=== PATIENT | male | born 1965 | race Caucasian/White ===

== ENCOUNTER 2020-03-06 01:04 | Emergency (ER) | payer OTHER ==
[~2020-03-06] VITALS: Ht 167.6 cm; Wt 82.7 kg
--- NOTE | 2020-03-06 01:11 | PHYS DOC ---
Past History Past Medical History: Kidney Stones General Adult HPI: HPI: ".. It feels like I am having another kidney stone.. here on Lt.... it hollie started yesterday... I ve had them on both sides.. Lithotripsy On right side.... And I had a surgical removal of a cyst on my left kidney.... At the [facility] in [place]...I really hurting..." " Patient is a 54 year old male who presents with above hx and complaints of Lt flank pain starting yesterday. Patient has had previous kidney stones. Patient has had need of lithotripsy in the past for kidney stones and stent placements. Patient had a previous resection of the left kidney due to a cystic structure. Patient denies any trauma. Patient denies any travel recently outside of the [place] area. No history immunosuppression. [facility] normally follows at [facility] for his medical care. Review of Systems: Review of Systems: Constitutional: Denies fever or chills Eyes: Denies change in visual acuity HENT: Denies nasal congestion or sore throat Respiratory: Denies cough or shortness of breath Cardiovascular: Denies chest pain or edema GI: Complaints of Lt. flank abdominal pain, nausea. Denies, vomiting, bloody stools or diarrhea : Denies dysuria Musculoskeletal: Complaints of Lt flank back pain Integument: Denies rash Neurologic: Denies headache, focal weakness or sensory changes Endocrine: Denies polyuria or polydipsia Lymphatic: Denies swollen glands Psychiatric: Denies depression or anxiety Heart Score: Risk Factors: Risk Factors: DM, Current or recent (<one month) smoker, HTN, HLP, family history of CAD, obesity. Risk Scores: Score 0 - 3: 2.5% MACE over next 6 weeks - Discharge Home Score 4 - 6: 20.3% MACE over next 6 weeks - Admit for Clinical Observation Score 7 - 10: 72.7% MACE over next 6 weeks - Early Invasive Strategies Family History: Family History: Father had kidney stones Current Medications: Current Meds: See nursing for home meds Allergies: Allergies: No known drug allergies Physical Exam: PE: Constitutional: in acute distress, non-toxic appearance. [] HENT: Normocephalic, atraumatic, bilateral external ears normal, oropharynx moist, no oral exudates, nose normal. [] Eyes: PERRLA, EOMI, conjunctiva normal, no discharge. [] Neck: Normal range of motion, no tenderness, supple, no stridor. [] Cardiovascular:Heart rate regular rhythm, no murmur [] Lungs & Thorax: Bilateral breath sounds equal at apex auscultation [] Abdomen: Bowel sounds decreased, soft, left mid abdomen and flank tenderness, no masses, no pulsatile masses.] [Old surgery scar. No rebound pain. Skin: Warm, dry, no erythema, no rash. [] Back: No tenderness, left CVA tenderness. [] Extremities: No tenderness, no cyanosis, no clubbing, ROM intact, no edema. No psoas sign Neurologic: Alert and oriented X 3, normal motor function, normal sensory function, no focal deficits noted. [] Psychologic: Affect anxious l, judgement normal, mood normal. [] EKG: EKG: [] Radiology/Procedures: Radiology/Procedures: [address] [address] IMAGING REPORT Signed PATIENT: XI CARR EACCOUNT: [id number] : 1965 LOCATION: ER AGE: 54 SEX: M EXAM STATUS: REG ER ORD. PHYSICIAN: BASHIR HERRERA MD REASON: pain PROCEDURE: ACUTE ABDOMEN SERIES EXAM: Frontal view of the chest, AP views of the abdomen in upright and supine positions. CLINICAL INDICATION: Abdominal pain COMPARISON: CT 03/06/2020 FINDINGS and IMPRESSION: The heart is not enlarged. Mediastinal and hilar contours are normal. No focal parenchymal airspace opacity. No pleural effusion or pneumothorax. No abnormal small or large bowel dilatation. Moderate colonic stool content. No abnormal soft tissue mass effect. Calcifications projecting of the left renal fossa likely renal calculi. Additionally calcification at the left aspect of the L4 transverse process within the left ureter. No free intraperitoneal gas. Electronically signed by: Igor Cordero MD (03/06/2020 2:51 AM) [facility] DI[facility]ATED AND SIGNED BY: IGOR CORDERO MD DATE: 03/06/20 0251 CC: BASHIR HERRERA MD; PCP,UNKNOWN ~ [][address] [id number] IMAGING REPORT Signed PATIENT: XI CARR EACCOUNT: [id number] : 1965 LOCATION: ER AGE: 54 SEX: M EXAM STATUS: REG ER ORD. PHYSICIAN: BASHIR HERRERA MD REASON: hx kidney stone, cyst on Lt /post ori. Lt. side pain PROCEDURE: CT ABDOMEN PELVIS WO CONTRAST EXAM: CT Abdomen and Pelvis without IV contrast CLINICAL HISTORY: History of kidney stone, left-sided flank pain. COMPARISON: none TECHNIQUE: Helical CT of the abdomen and pelvis was performed without the administration of IV contrast. Axial, coronal and sagittal reformatted images were generated. ---PQRS compliance statement - One or more of the following individualized dose reduction techniques were utilized for this study: 1. Automated exposure control 2. Adjustment of the mA and/or kV according to patient size 3. Use of iterative reconstruction technique--- FINDINGS: Lack of intravenous contrast limits evaluation of solid organs, vasculature, and lymph nodes. Lower chest: Lung bases are clear. Abdomen and pelvis: Liver and biliary system: No focal liver lesion. Gallbladder is normal. No biliary ductal dilatation. Spleen: Unremarkable Pancreas: Unremarkable Adrenal glands: Unremarkable Kidneys: A 4 mm calculus is seen within the proximal left ureter. Moderate left hydronephrosis. Additional nonobstructing left lower pole renal calculi are seen. Punctate nonobstructing right interpolar renal calculus. No right hydronephrosis. Left interpolar renal cystic lesion is seen measuring 8 Hounsfield units. Right lower pole hypodense lesion is too small to accurately characterize measuring 9 mm. Lymph nodes/retroperitoneum: No abdominal or pelvic lymphadenopathy. Vessels: Aorta is normal in caliber with intermittent vascular calcifications. Bowel/Peritoneal cavity: Moderate colonic stool content is seen. No bowel obstruction. No bowel obstruction. Appendix is normal. No abdominal or pelvic ascites. Abdominal wall: Small fat-containing periumbilical hernia is seen. Bladder: Mild bladder wall thickening may be seen with cystitis. Bones: Degenerative changes of the spine are seen. No aggressive osseous lesion is noted. IMPRESSION: 1. 4 mm calculus within the proximal left ureter results in moderate left hydronephrosis. Additional nonobstructing bilateral renal calculi. 2. Bladder wall thickening, nonspecific but may be seen with cystitis. Electronically signed by: Igor Cordero MD (03/06/2020 2:48 AM) [facility] DI[facility]ATED AND SIGNED BY: IGOR CORDERO MD DATE: 03/06/20 0248 CC: BASHIR HERRERA MD; PCP,UNKNOWN ~ Course & Med Decision Making: Course & Med Decision Making Pertinent Labs and Imaging studies reviewed. (See chart for details) Patient is safe stone if passed. Patient push fluids. Patient takes Zofran 8 mg with 4 times a day for active nausea and vomiting. May take Tylenol and ibuprofen for pain. For marked pain may take Vicoprofen up to 4 times a day. Follow-up primary care. Follow-up with urology. Return if any concerns. Patient reviewed labs with primary care. Follow-up urine cultures. Return if any concerns. Self isolate. Practice social distancing. During this pandemic. Impression: 1. Renal colic 2. Lt. Renal stone with mild hydronephrosis. 3. Leukocytosis 15 with 87 segs 4. Elevated glucose-161 [] Dragon Disclaimer: Dragon Disclaimer: This electronic medical record was generated, in whole or in part, using a voice recognition dictation system. Departure Departure: Disposition: 01 HOME/RESIDENCE PRIOR TO ADM Condition: STABLE Referrals: PCP,UNKNOWN (PCP) Scripts Tamsulosin Hcl (FLOMAX) 0.4 Mg Cap.er.24h 0.4 MG PO HS for kidney stone, #30 CAP.SR Prov: BASHIR HERRERA MD 03/06/20 Ondansetron Hcl (ZOFRAN) 8 Mg Tablet 8 MG PO QIDPRN PRN for NAUSEA/VOMITING, #30 BOTTLE Prov: BASHIR HERRERA MD 03/06/20 Hydrocodone/Ibuprofen (HYDROCODONE-IBUPROFEN 7.5-200 ) 1 Each Tablet 1 TAB PO PRN Q6HRS PRN for PAIN, #30 TAB 0 Refills Prov: BASHIR HERRERA MD 03/06/20 Dragon Disclaimer This chart was dictated in whole or in part using Voice Recognition software in a busy, high-work load, and often noisy Emergency Department environment. It may contain unintended and wholly unrecognized errors or omissions. BASHIR HERRERA MD Mar 06, 2020 01:11
[2020-03-06] MEDS ORDERED: IV RINGERS SOLUTION,LACTATED 1,000 ML IV SCH (01:47)
[2020-03-06] MEDS ORDERED: KETOROLAC 30 MG/ML VIAL. IVP ONE (02:00)
[2020-03-06] MEDS ORDERED: TAMSULOSIN 0.4 MG CAP.ER.24H. PO ONE (02:00)
[2020-03-06] MEDS ORDERED: ONDANSETRON PF 4 MG/2 ML VIAL. IVP ONE ×2 (02:00→04:00)
[2020-03-06 02:08] LABS: BASO # 0.1 x10^3/uL (0.0-0.2); BASO % 1 % (0-3); EOS % 0 % (0-3); HEMATOCRIT 46.3 % (39.0-53.0); HEMOGLOBIN 15.5 g/dL (13.0-17.5); LYMPH # 1.2 x10^3/uL (1.0-4.8); LYMPH % 8 % (24-48); MEAN CORPUSCULAR HEMOGLOBIN 30 pg (25-35); MEAN CORPUSCULAR HGB CONC 34 g/dL (31-37); MEAN CORPUSCULAR VOLUME 88 fL (79-100); MONO # 0.5 x10^3/uL (0.0-1.1); MONO % 3 % (0-9); NEUT # 13.2 x10^3uL (1.8-7.7); NEUT % 88 % (31-73); PLATELET COUNT 294 x10^3/uL (140-400); RED BLOOD COUNT 5.25 x10^6/uL (4.30-5.70); RED CELL DISTRIBUTION WIDTH 13.1 % (11.5-14.5)
[2020-03-06] MEDS ORDERED: MORPHINE SULFATE 10 MG/ML SYRINGE. SQ ONE ×2 (02:30→05:45)
[2020-03-06 02:34] LABS: % BANDS 3 % (0-9); % LYMPHS 7 % (24-48); % MONOS 3 % (0-10); % SEGS 87 % (35-66)
[2020-03-06 02:40] LABS: ALBUMIN 4.1 g/dL (3.4-5.0); CALCIUM 9.4 mg/dL (8.5-10.1); CREATININE 1.1 mg/dL (0.7-1.3); DIRECT BILIRUBIN 0.1 mg/dL (0.0-0.2); GFR 69.2; MAGNESIUM 1.9 mg/dL (1.8-2.4); TOTAL BILIRUBIN 0.3 mg/dL (0.2-1.0); TOTAL PROTEIN 7.9 g/dL (6.4-8.2)
--- NOTE | 2020-03-06 02:51 | RAD ---
EXAM: CT Abdomen and Pelvis without IV contrast CLINICAL HISTORY: History of kidney stone, left-sided flank pain. COMPARISON: none TECHNIQUE: Helical CT of the abdomen and pelvis was performed without the administration of IV contrast. Axial, coronal and sagittal reformatted images were generated. ---PQRS compliance statement - One or more of the following individualized dose reduction techniques were utilized for this study: 1. Automated exposure control 2. Adjustment of the mA and/or kV according to patient size 3. Use of iterative reconstruction technique--- FINDINGS: Lack of intravenous contrast limits evaluation of solid organs, vasculature, and lymph nodes. Lower chest: Lung bases are clear. Abdomen and pelvis: Liver and biliary system: No focal liver lesion. Gallbladder is normal. No biliary ductal dilatation. Spleen: Unremarkable Pancreas: Unremarkable Adrenal glands: Unremarkable Kidneys: A 4 mm calculus is seen within the proximal left ureter. Moderate left hydronephrosis. Additional nonobstructing left lower pole renal calculi are seen. Punctate nonobstructing right interpolar renal calculus. No right hydronephrosis. Left interpolar renal cystic lesion is seen measuring 8 Hounsfield units. Right lower pole hypodense lesion is too small to accurately characterize measuring 9 mm. Lymph nodes/retroperitoneum: No abdominal or pelvic lymphadenopathy. Vessels: Aorta is normal in caliber with intermittent vascular calcifications. Bowel/Peritoneal cavity: Moderate colonic stool content is seen. No bowel obstruction. No bowel obstruction. Appendix is normal. No abdominal or pelvic ascites. Abdominal wall: Small fat-containing periumbilical hernia is seen. Bladder: Mild bladder wall thickening may be seen with cystitis. Bones: Degenerative changes of the spine are seen. No aggressive osseous lesion is noted. IMPRESSION: 1. 4 mm calculus within the proximal left ureter results in moderate left hydronephrosis. Additional nonobstructing bilateral renal calculi. 2. Bladder wall thickening, nonspecific but may be seen with cystitis. Electronically signed by: Igor Cordero MD (03/06/2020 2:48 AM) [facility]
--- NOTE | 2020-03-06 02:54 | RAD ---
EXAM: Frontal view of the chest, AP views of the abdomen in upright and supine positions. CLINICAL INDICATION: Abdominal pain COMPARISON: CT 03/06/2020 FINDINGS and IMPRESSION: The heart is not enlarged. Mediastinal and hilar contours are normal. No focal parenchymal airspace opacity. No pleural effusion or pneumothorax. No abnormal small or large bowel dilatation. Moderate colonic stool content. No abnormal soft tissue mass effect. Calcifications projecting of the left renal fossa likely renal calculi. Additionally calcification at the left aspect of the L4 transverse process within the left ureter. No free intraperitoneal gas. Electronically signed by: Igor Cordero MD (03/06/2020 2:51 AM) [facility]
[2020-03-06] MEDS ORDERED: IV RINGERS SOLUTION,LACTATED 1,000 ML IV ONE (04:00)
[2020-03-06 05:02] LABS: BARBITURATES NEG (NEG); BENZODIAZEPINES NEG (NEG); CANNABINOIDS NEG (NEG); COCAINE NEG (NEG); METHADONE NEG (NEG); OPIATES POS (NEG); PHENCYCLIDINE NEG (NEG)
[2020-03-06 05:05] LABS: AMPHETAMINE/METHAMPHETAMINE NEG (NEG)
[2020-03-06 05:11] LABS: BACTERIA,URINE 0 /HPF (0-FEW); BILIRUBIN,URINE NEG (NEG); CLARITY,URINE CLEAR; COLOR,URINE YELLOW; GLUCOSE,URINE NEG (NEG); NITRITE,URINE NEG (NEG); UROBILINOGEN,URINE 0.2 mg/dL (0.2 mg/dL); WBC,URINE OCC /HPF (0-4)
[2020-03-06] MEDS ORDERED: HYDR-1179 PO (05:15)
[2020-03-06] MEDS ORDERED: ONDA8TAB9 PO (05:15)
[2020-03-06] MEDS ORDERED: TAMS0.4C97 PO (05:16)
[2020-03-06 05:39] LABS: PLT ESTIMATE ADEQUATE (ADEQUATE)
[2020-03-06 05:46] VITALS: BP 135/84
== END 2020-03-06 05:50 | disposition home or self-care (01) ==
LOC: ER 01:04
DX: N13.2 Hydronephrosis with renal and ureteral calculous obstruction (principal); D72.829 Elevated white blood cell count, unspecified; R73.9 Hyperglycemia, unspecified; K42.9 Umbilical hernia without obstruction or gangrene; Z87.442 Personal history of urinary calculi
CPT/HCPCS: 36415; 74022; 74176; 80048; 80076; 80307; 81001; 82550; 83690; 83735; 84443; 84484; 85007; 85025; 85379; 85610; 85730; 86705; 86709; 86803; 87340; 96372; 96374; 96375; 96376; 99285; J1885; J2270; J2405; J7120